=== PATIENT | female | born 1985 | race Caucasian/White ===

== ENCOUNTER → 2016-03-21 | Outpatient (CLI) | payer OTHER ==
[~2016-03-21] MED LIST: LABE1TAB28 PO; PRENTAB26 PO
== END | disposition home or self-care (01) ==
LOC: C.LABSPEC 12:09
PROVIDERS: ATTEND Obstetrics & Gynecology
DX: J02.9 Acute pharyngitis, unspecified (principal)

== ENCOUNTER → 2016-04-06 | Outpatient (CLI) | payer OTHER ==
[2016-04-06 11:43] LABS: HEMATOCRIT 31.8 % (37-47); MEAN CORPUSCULAR HEMOGLOBIN 28.3 pg (25-34); MEAN CORPUSCULAR HGB CONC 33.3 g/dl (32-36); MEAN PLATELET VOLUME 11.2 fL (7.4-10.4); PLATELET COUNT 229 K/uL (130-400); RED BLOOD COUNT 3.74 M/uL (4.2-5.4); WHITE BLOOD COUNT 9.06 K/uL (4.8-10.8)
[2016-04-06 11:49] LABS: GTGD 50 Grams
[2016-04-06 11:57] LABS: BASO % 0.1 %; EOS % 0.9 %; IG% 0.7 %; LYMPH % 20.5 %; LYMPH ABS # 1.84 K/uL (1.2-3.4); MONO % 7.6 %; NEUT % 70.2 %
[2016-04-06 11:58] LABS: BASO ABS # 0.01 K/uL (0-0.2); COMPLETE YES
== END | disposition home or self-care (01) ==
LOC: C.LAB 09:16
PROVIDERS: ATTEND Obstetrics & Gynecology
DX: Z34.83 Encounter for supervision of other normal pregnancy, third trimester (principal)

== ENCOUNTER → 2016-06-14 | Outpatient (CLI) | payer OTHER | END | disposition home or self-care (01) | LOC: C.LABSPEC 15:22 | PROVIDERS: ATTEND Obstetrics & Gynecology | DX: Z34.83 Encounter for supervision of other normal pregnancy, third trimester (principal) ==

== ENCOUNTER 2016-06-27 14:40 | Inpatient (IN) | payer OTHER ==
[~2016-06-27] VITALS: Ht 162.6 cm; Wt 127.5 kg
[2016-06-27] MEDS ORDERED: PRENTAB26 PO (14:52)
[2016-06-27] MEDS ORDERED: LABE1TAB28 PO (14:52)
[2016-06-27 14:53] VITALS: Ht 162.6 cm; Wt 127.5 kg
--- NOTE | 2016-06-27 16:49 | DIAGNOSTIC IMAGING REPORT ---
ULTRASOUND BIOPHYSICAL PROFILE CLINICAL HISTORY: 38 week . Bleeding. Heart rate deceleration. COMPARISON STUDY: No previous studies for comparison. FINDINGS: Ultrasound biophysical profile was performed. heart rate is 141. The fetus received 2 points for movement, breathing, tone. The amniotic fluid index was 12.6 cm. IMPRESSION: biophysical profile of 8 out of 8 points Electronically signed by: Deion Cox M.D. 06/27/2016 4:47 PM Dictated Date/Time: 06/27/2016 4:46 PM
[2016-06-27] MEDS ORDERED: LACTATED RINGER'S 1000ML 1,000 ML IV PRN (19:14)
[2016-06-27] MEDS ORDERED: LACTATED RINGER'S 1000ML 500 ML IV PRN ×2 (19:19→23:16)
[2016-06-27] MEDS ORDERED: OXYTOCIN 30 UNITS/500ML NSS IV PRN (19:30)
[2016-06-27 19:45] LABS: HEMATOCRIT 32.1 % (37-47); MEAN CELL VOLUME 85.1 fL (80-100); MEAN CORPUSCULAR HEMOGLOBIN 27.9 pg (25-34); MEAN CORPUSCULAR HGB CONC 32.7 g/dl (32-36); MEAN PLATELET VOLUME 11.2 fL (7.4-10.4); PLATELET COUNT 247 K/uL (130-400); RED BLOOD COUNT 3.77 M/uL (4.2-5.4); WHITE BLOOD COUNT 12.72 K/uL (4.8-10.8)
[2016-06-27] MEDS: LABETALOL HCL 300 MG TAB PO SCH (20:26)
[2016-06-27] MEDS: LACTATED RINGER'S 1000ML 1,000 ML IV SCH ×2 (20:27→23:13)
[2016-06-27] MEDS ORDERED: BUPIVACAINE 0.25% 30 ML VIAL ONE (21:21)
[2016-06-27] MEDS ORDERED: FENTANYL 2MCG/ML ROPIV 1.25MG/ML 100ML BAG EPI ONE (21:22)
[2016-06-27] MEDS ORDERED: FENTANYL CITRATE INJ 50 MCG/1 ML 2 ML VIAL ONE (21:22)
[2016-06-27] MEDS ORDERED: EpHEDrine SULFATE INJ 50 MG/ML AMP ONE (21:22)
[2016-06-27] MEDS ORDERED: NALOXONE HCL INJ 1 MG in SODIUM CHLORIDE 0.9% 1000ML 1,000 ML IV PRN (23:16)
[2016-06-27] MEDS ORDERED: FENTANYL 2MCG/ML ROPIV 1.25MG/ML 100ML BAG EPI PRN (23:30)
[2016-06-27] MEDS ORDERED: NALOXONE HCL INJ 0.4 MG/1 ML VIAL/CARP IV PRN (23:30)
[2016-06-27] MEDS ORDERED: DiphenhydrAMINE HCL 50 MG/ML VIAL IV PRN (23:30)
[2016-06-27] MEDS ORDERED: ONDANSETRON INJ 2 MG/ML 2 ML VIAL IV PRN (23:30)
[2016-06-27] MEDS ORDERED: NALBUPHINE HCL INJ 10 MG/ML AMP IV PRN (23:30)
[2016-06-27] MEDS ORDERED: EpHEDrine SULFATE INJ 50 MG/ML AMP IV PRN (23:30)
[2016-06-28] VITALS (8 sets, daily range): BP systolic 127–147; BP diastolic 79–87; PULSE 72–95; TEMP 36.5–36.8; O2SAT 98–99
[2016-06-28] MEDS ORDERED: LANOLIN OINT EXT PRN ×2
[2016-06-28] MEDS ORDERED: ACETAMINOPHEN 325 MG TAB PO PRN
[2016-06-28] MEDS ORDERED: OXYCODONE/ACETAMINOPHEN 5-325 TAB PO PRN
[2016-06-28] MEDS ORDERED: SUPERCREAM 0.870 % 15GM JAR EXT PRN
[2016-06-28] MEDS ORDERED: BENZOCAINE 20% AER SPR 82.5 GM CAN EXT PRN
[2016-06-28] MEDS ORDERED: HYDROCORTISONE ACETATE 25 MG SUPP PR PRN
[2016-06-28] MEDS ORDERED: DIPHTHERIA/TETANUS/PERTUSSIS 0.5 ML SYR/VIAL IM. ONE
[2016-06-28] MEDS ORDERED: OXYTOCIN 30 UNITS/500ML NSS IV PRN
--- NOTE | 2016-06-28 00:54 | DELIVERY SUMMARY ---
DATE OF OPERATION: 06/28/2016 The patient is a 30-year-old 2, para 2, blood type is A+, she is rubella immune. Vaginal beta strep negative. has been complicated by hypertension for which she has been on labetalol, started out early in on 100 mg 3 times a day, then was increased to 200 mg 3 times a day, and then when she delivered, she was on 300 three times a day. She also received Celestone at 28 weeks gestation for threatened premature labor. She came to the office the day of admission, she had a slight bloody show and her cervix that had been closed on previous exam was now about 2 cm open with the head high. Because of the blood pressure and because of the bleeding, she was placed on a monitor on maternity and she started to have some sporadic decelerations. This was evaluated with a biophysical profile which was 8/8. However, given the fact that the patient had essential hypertension and that she had recurrent sporadic mild decelerations and that she was 37 weeks and 6 days, we elected to consider induction of labor. When I finished the office and came up to check the patient, she went from 2 to about 4. We then augmented her contractions with IV Pitocin. Eventually she went into full dilatation after obtaining an epidural and getting good pain relief. Membranes were ruptured on exam when she was about 8-9 cm, fluid was clear. She quickly went to full dilatation but began to have some decelerations. We held back the cervix and the patient pushed the head right down, turned to pit off, gave her oxygen, and in about 6 minutes, we were able to crown the head and deliver the head. She had a tight nuchal cord which had to be clamped and cut prior to delivery and the infant was born without difficulty. Infant also had been suctioned through the mouth and the nose, was slightly limp at with Apgars of 5 at 1 minute and 9 at 5, and was given to the nurses where they did some mask and bag oxygen. Following this, with IV Pitocin running, the placenta was removed intact. Inspection of the perineum revealed an old laceration of the labia minora on the patient's left side and a first-degree perineal laceration on the patient's right side. Perineal laceration was repaired with 2-0 Vicryl, putting a stitch in above the defect and running a continuous 2-0 Vicryl out to beyond the hymenal ring. Using deep sutures, they were approximated to bulbocavernosus muscle, a separate deep suture to approximate the perineal body, then a running subcuticular suture to approximate the perineal skin edges. I then worked on the tear of the left labia minora, cutting back some of the scar tissue and trying to reapproximate the labia with a deep suture of 2-0 Vicryl. I then used 3-0 chromic to approximate the inside of the vaginal mucosa out to the end of the labia minora. Following this, hemostasis was good. The patient tolerated the procedure well. Vag exam including rectovaginal examination revealed no hematoma formation or sponges in the vagina. Estimated blood loss was 300 mL. I attest to the content of the Intraoperative Record and any orders documented therein. Any exceptio ns are noted below.
--- NOTE | 2016-06-28 03:09 | Anesthesia Procedure Note ---
Anesthesia Epidural Removal Nt Date & Time June 28, 2016 at 03:09 Vital Signs Pain Intensity: 0.0 Notes Mental Status: alert / awake / arousable, participated in evaluation Nausea / Vomiting: adequately controlled Pain: adequately controlled Airway Patency, RR, SpO2: stable & adequate BP & HR: stable & adequate Hydration State: stable & adequate Neuraxial Anesthesia: was administered, sensory block is resolving Anesthetic Complications: no major complications apparent, pt satisfied with anesthetic care Epidural: removed without complications, with tip intact
[2016-06-28] MEDS: IBUPROFEN 600 MG TAB PO PRN ×3 (04:58→15:27)
[2016-06-28 07:38] LABS: HEMATOCRIT 28.7 % (37-47)
[2016-06-28] MEDS ORDERED: LABETALOL HCL 300 MG TAB PO SCH (08:00)
[2016-06-28] MEDS: ACETAMINOPHEN/CODEINE 300/30MG TAB PO PRN ×4 (08:20→20:47)
[2016-06-28] MEDS: FERROUS SULFATE 325 MG TAB PO SCH (08:21)
[2016-06-28] MEDS: DOCUSATE SODIUM 100 MG CAP PO SCH ×2 (08:21→20:23)
[2016-06-28] MEDS: LABETALOL HCL 300 MG TAB PO SCH ×3 (08:34→20:22)
[2016-06-28] MEDS: PRENATAL VITAMIN TAB PO SCH (08:34)
--- NOTE | 2016-06-28 10:21 | Progress Note ---
Subjective June 28, 2016. Subjective conversation w/ patient Ambulation: ambulating normally Voiding: no voiding problems Passing Gas: Yes Diet Tolerance: Regular Diet Lochia: Small Feeding Type: Breast Feeding Review of Systems Constitutional: + fever Objective Vital Signs Date Time Temp Pulse Resp B/P Pulse Ox O2 Delivery O2 Flow Rate FiO2 06/28/16 08:20 Room Air 06/28/16 08:06 36.7 72 15 147/84 98 Room Air 06/28/16 08:00 36.7 72 15 147/84 Physical Exam General Appearance: WELL-APPEARING Respiratory/Chest: lungs clear Abdomen: normal bowel sounds, non tender Fundus: Firm, Non-Tender Extremities: no pedal edema, no calf tenderness Laboratory Results Last 24 Hours Test 06/27/16 19:40 06/28/16 07:29 White Blood Count 12.72 K/uL Red Blood Count 3.77 M/uL Hemoglobin 10.5 g/dL 9.6 g/dL Hematocrit 32.1 % 28.7 % Mean Corpuscular Volume 85.1 fL Mean Corpuscular Hemoglobin 27.9 pg Mean Corpuscular Hemoglobin Concent 32.7 g/dl RDW Standard Deviation 43.6 fL RDW Coefficient of Variation 14.2 % Platelet Count 247 K/uL Mean Platelet Volume 11.2 fL Assessment and Plan Post- Day#: 1
[2016-06-28] MEDS ORDERED: BISACODYL 5 MG TABEC PO SCH (20:00)
[2016-06-29 01:15] VITALS: BP 128/77; PULSE 88; TEMP 36.5
[2016-06-29] MEDS: ACETAMINOPHEN/CODEINE 300/30MG TAB PO PRN ×3 (01:29→10:21)
[2016-06-29] MEDS ORDERED: BISACODYL 10 MG SUPP PR PRN (07:00)
[2016-06-29 07:05] VITALS: BP 137/87; PULSE 72; TEMP 36.9; O2SAT 100
[2016-06-29 08:15] VITALS: BP 119/66; PULSE 76; TEMP 36.6
[2016-06-29] MEDS: DOCUSATE SODIUM 100 MG CAP PO SCH (08:41)
[2016-06-29] MEDS: LABETALOL HCL 300 MG TAB PO SCH (08:41)
[2016-06-29] MEDS: PRENATAL VITAMIN TAB PO SCH (08:41)
[2016-06-29] MEDS: FERROUS SULFATE 325 MG TAB PO SCH (08:41)
--- NOTE | 2016-06-29 09:02 | Progress Note ---
Subjective June 29, 2016. Subjective conversation w/ patient Ambulation: ambulating normally Voiding: no voiding problems Passing Gas: Yes Diet Tolerance: Regular Diet Lochia: Small Feeding Type: Breast Feeding Review of Systems Constitutional: + fever Objective Vital Signs Date Time Temp Pulse Resp B/P Pulse Ox O2 Delivery O2 Flow Rate FiO2 06/29/16 07:05 36.9 72 18 137/87 100 Room Air 06/29/16 01:15 Room Air 06/29/16 01:15 36.5 88 16 128/77 Room Air 06/28/16 20:10 36.5 90 18 127/79 Room Air 06/28/16 20:10 Room Air 06/28/16 15:30 Room Air 06/28/16 13:45 137/87 06/28/16 11:45 36.8 77 17 138/81 99 Room Air Physical Exam General Appearance: WELL-APPEARING Abdomen: normal bowel sounds, non tender Fundus: Firm, Non-Tender Extremities: no pedal edema, no calf tenderness Assessment and Plan Post- Day#: 2
--- NOTE | 2016-06-29 09:04 | Discharge Instructions ---
Discharge Instructions Date of Service June 29, 2016. Admission Reason for Admission: NST Discharge Discharge Diagnosis / Problem: hypertension non reasuring heart rate Discharge Goals Goal(s): Routine recovery after delivery Activity Recommendations Activity Limitations: as noted below ACTIVITY RECOMMENDATIONS: * Gradual return to full activity over the next 2-3 weeks. * No lifting - nothing heavier than baby over the next 2-3 weeks. * Do not engage in vigorous exercise, sexual activity or sports until cleared by your physician. * Do not drive or operate any motorized equipment until cleared by your physician. * You may shower/bathe daily. DIET: Resume Previous Diet If Breast-feeding: * Increase caloric intake by 500 calories, eat 3 well balanced meals, 2 high protein snacks a day and drink 6-8 8oz. glasses of fluid per day. BREAST CARE: If you are not breast feeding: * Wear a supportive bra 24 hours a day for one to two weeks. * Avoid stimulating your breasts and nipples as much as possible during the first few weeks after delivery. * When taking a shower, have the warm water hit your back, not breasts. * When your breasts feel full, apply ice packs. Usually three to four times a day helps ease the discomfort. * Take a mild pain medication (Tylenol / Motrin) when you are uncomfortable. If breast feeding: * Use breast milk to lubricate nipples. Lansinoh cream may be used for sore nipples. You do not need to remove cream prior to breast feeding. If using a different brand of cream, check the label for directions regarding removal of cream prior to nursing. * Wear a supportive bra. * If having problems with breasts or breast feeding, call a sales development consultant or your health care provider. OVER THE COUNTER MEDICATION: * For discomfort or pain, you may use Acetaminophen (Tylenol), Ibuprofen (Advil ), or Naproxen (Aleve) following the package directions. * For constipation you may use Colace following the package directions. SPECIAL CARE INSTRUCTIONS: * Vaginal rest (no tampons, douching, intercourse) until after doctor 's visit. * control as discussed with doctor. * Verbalizes understanding of car seat law as reviewed with patient nursing. * Car Seat hand-out given and reviewed with patient by nursing. * Shaken baby information reviewed with patient by nursing. Call you doctor if: * Temperature greater than or equal to 100.4 degrees F or 38.0 degrees C. Take your temperature twice daily for a week. * Bleeding becomes heavier than the heaviest part of your period - saturating a sanitary pad within an hour. * Passing large clots. * Bleeding has a foul smelling odor. * Signs and symptoms of phlebitis: leg pain, warm, red or swollen area on leg. * "Baby Blues" lasting longer than two weeks. ++ If you have had a and incision has increased pain, redness, swelling, presence of any drainage, or if the incision starts to open up. If you have any questions or concerns, call your health care practitioner at [phone]. FOLLOW-UP VISIT: Please call the office at to schedule a 6 week examination. . Current Hospital Diet Patient's current hospital diet: Regular Diet Discharge Diet Recommended Diet: Regular Diet Pending Studies Studies pending at discharge: no Medical Emergencies . Who to Call and When: Medical Emergencies: If at any time you feel your situation is an emergency, please call 911 immediately. . Non-Emergent Contact Non-Emergency issues call your: Pulmonary Function Technician Call Non-Emergent contact if: temperature is above 100.5 . . "Provider Documentation" section prepared by Rene Anderson. . VTE Core Measure Inpt VTE Proph given/why not?: Treatment not indicated
[2016-06-29 11:14] VITALS: BP_DIAS 66; PULSE 76; TEMP 36.6
== END 2016-06-29 14:10 | disposition home or self-care (01) | DRG 775 ==
LOC: C.OPB 14:40 → C.OBG 14:40 → C.OPB 19:19 → C.OBG 19:19 → C.LD 19:42 → C.OBG 06-28 06:20
PROVIDERS: ADMIT Obstetrics & Gynecology; ATTEND Obstetrics & Gynecology
PROC: 0HQ9XZZ Repair Perineum Skin, External Approach (ICD-10-PCS; principal; 2016-06-27)
PROC: 10E0XZZ Delivery of Products of Conception, External Approach (ICD-10-PCS; principal; 2016-06-27)
DX: O13.4 Gestational [pregnancy-induced] hypertension without significant proteinuria, complicating childbirth (principal); Z68.42 Body mass index [BMI] 45.0-49.9, adult; Z37.0 Single live birth; O76 Abnormality in fetal heart rate and rhythm complicating labor and delivery; O69.1XX0 Labor and delivery complicated by cord around neck, with compression, not applicable or unspecified; O70.0 First degree perineal laceration during delivery; O99.02 Anemia complicating childbirth; D64.9 Anemia, unspecified; O99.52 Diseases of the respiratory system complicating childbirth; J45.909 Unspecified asthma, uncomplicated; O99.214 Obesity complicating childbirth; E66.9 Obesity, unspecified; Z3A.37 37 weeks gestation of pregnancy; Z79.899 Other long term (current) drug therapy

== ENCOUNTER → 2016-08-08 | Outpatient (CLI) | payer OTHER | END | disposition home or self-care (01) | LOC: C.PAPS 17:40 | PROVIDERS: ATTEND Obstetrics & Gynecology | DX: Z39.2 Encounter for routine postpartum follow-up (principal) ==

== ENCOUNTER → 2016-09-19 | Outpatient (CLI) | payer OTHER | END | disposition home or self-care (01) | LOC: C.LAB 07:45 | PROVIDERS: ATTEND Obstetrics & Gynecology | DX: N92.5 Other specified irregular menstruation (principal) ==

== ENCOUNTER → 2016-11-07 | Outpatient (CLI) | payer OTHER ==
--- NOTE | 2016-11-07 14:42 | MAMMOGRAPHY REPORT ---
ULTRASOUND OF LEFT BREAST: 11/07/2016 CLINICAL HISTORY: 31-year-old woman with a palpable lump in the 7:00 retroareolar left breast that jack baig has felt for many years, but recently after the of her second child she feels it is increased in size and less mobile. No skin erythema or nipple discharge. COMPARISON: Comparison is made to exams dated: 04/29/2009 ultrasound and 04/29/2009 consultation - [facility]. FINDINGS: Targeted ultrasound was performed in the area of palpable lump pointed out by the patient, within the 7:00 subareolar/retroareolar left breast. Just deep to the dermis is an oval parallel cir cumscribed hypoechoic solid mass measuring 15.3 x 9.0 x 17.1 mm. Although this does not appear signi ficantly changed in size comparing to the prior ultrasound, given that it appears to be changing base d on the patient's description, solid nature and size greater than 1 cm it remains indeterminate. De finitive characterization with tissue sampling is recommended. IMPRESSION: ACR BI-RADS CATEGORY 4: SUSPICIOUS - FOLLOW-UP RECOMMENDED Left breast ultrasound guided core needle biopsy is recommended for a solid palpable 17.1 mm mass in the 7:00 retroareolar left breast, although this could represent a fibroadenoma. These results and recommendations were discussed with the patient at the time of the exam. Kendra Cerrato M.D. ay/:11/07/2016 08:59:31 Score Caller: Dr. Kendra Cerrato, [facility] letter sent: Abnormal 4/5 BI-RADS Code: ACR BI-RADS Category 4: Suspicious
== END | disposition home or self-care (01) ==
LOC: C.MAMM 08:42
PROVIDERS: ATTEND Obstetrics & Gynecology
DX: N63 Unspecified lump in breast (principal)

== ENCOUNTER → 2017-01-01 | Outpatient (CLI) | payer BC ==
--- NOTE | 2017-01-01 11:01 | Discharge Instructions ---
Discharge Instructions Procedure Procedure Date: Jan 01, 2017. Reason for visit: Left Mass. Discharge Discharge Date: Jan 01, 2017. Discharge Diagnosis: status post breast biopsy Instructions Activity Recommendations: Additional Limitations (see below) Return to School/Work: no limitations Recommended Home Diet: No Limitations Provider Instructions: ACTIVITY RECOMMENDATIONS: * No lifting, pushing, pulling or exercising the affected side for three days. RETURN TO SCHOOL/WORK: * You may return to work/school after the procedure, but do not perform any strenuous activities for 24 to 48 hours. MEDICATIONS: * Tylenol (two 325 mg) every four to six hours if needed for mild pain (if not allergic to Tylenol). DIET: * Resume previous diet. SPECIAL CARE INSTRUCTIONS: * Keep biopsy site dry for 24 hours. May shower after 24 hours, but do not soak (bathe) incision. * May remove Tegaderm (plastic patch) tomorrow AFTER showering. * Leave the steri-strips on for one week. Allow the steri-strips to fall off by themselves. If not off after one week, you may remove them. You may place a Bandaid crosswise over the strips, if desired. * Apply ice 10 minutes on and 10 minutes off as needed. * Wear a bra at bedtime to sleep more comfortably for 2-3 days. * Your referring physician should have the results after approximately 5 to 7 business days. * Call for unusual bleeding, fever, drainage, etc or if you have any questions call during normal business hours or after hours call Dr Duval, [phone]. FOLLOW UP VISIT: Follow-up with Referring Physician as scheduled. Allergies Coded Allergies: Amoxicillin (Verified Allergy, Unknown, HIVES OR RESPIRATORY PROBLEMS, ) Clavulanic Acid (Verified Allergy, Unknown, HIVES, 06/27/16) Penicillins (Verified Allergy, Unknown, ., 06/27/16) Toi Bonner Recommendations: Call your doctor if: * Temperature above 101 degrees * Pain not relieved by pain medicine ordered * There is increased drainage or redness from any incision * You have any unanswered questions or concerns. Your Doctors Instructions noted above were prepared by provider Monique Duval. Patient Signature Section: Patient Instructions Signature Page Bhavani Rizzo Patient (or Guardian) Signature/Date: I have read and understand the instructions given to me by my caregivers. Caregiver/RN/Doctor Signature/Date: The above-named patient and/or guardian has received patient instructions on this date. + Original Patient Signature Page (only) stays with chart. Please make copy for patient.
--- NOTE | 2017-01-01 14:45 | MAMMOGRAPHY REPORT ---
ULTRASOUND GUIDED BIOPSY LEFT BREAST: 01/01/2017 CLINICAL HISTORY: Left 7:00 subareolar breast mass. PATIENT CONSENT: The procedure, risks and benefits were discussed with the patient and informed writt en consent was obtained. A timeout was performed immediately prior to the procedure. PROCEDURE DESCRIPTION: With ultrasound guidance, aseptic technique, and lidocaine as the local anesth etic (1% lidocaine to anesthetize the skin and 1% lidocaine with epinephrine to anesthetize the deepe r tissues), the mass of concern in the left 7:00 subareolar breast was sampled 3 times with a 14-gaug e Achieve biopsy needle. Immediately thereafter, with ultrasound guidance, aseptic technique, and li docaine as the local anesthetic, a metallic localizer clip was placed centrally in the mass. Direct pressure was applied to the site immediately post procedure and hemostasis was achieved. The patient tolerated the procedure without complication. She was given wound care instructions. The specimens were sent to pathology for analysis. COMPARISON: Comparison is made to exams dated: 11/07/2016 ultrasound, 04/29/2009 consultation, and 04/12 ultrasound - [facility]. IMPRESSION: ULTRASOUND GUIDED BIOPSY Ultrasound guided core needle biopsy of the left 7:00 subareolar breast mass, with clip placement. T he patient will receive pathology results from her referring provider. Monique Duval M.D. /:01/01/2017 11:03:51 Territory Sales Consultant: Cookie BIGGS)([place]), [facility]
== END | disposition home or self-care (01) ==
LOC: C.MAMM 10:24
PROVIDERS: ATTEND Obstetrics & Gynecology
DX: N63.20 Unspecified lump in the left breast, unspecified quadrant (principal); D24.2 Benign neoplasm of left breast